=== PATIENT | male | born 1965 | race Caucasian/White ===

== ENCOUNTER 2017-09-14 06:35 | Emergency (ER) | payer OTHER ==
[~2017-09-14] VITALS: Ht 182.9 cm; Wt 112.4 kg
[~2017-09-14 06:35] MED LIST: ASPIR 8181 M1 PO; ATENOLOL50 MG PO; LISINOPRIL20 MG PO; MOTRIN800 MG PO; PRAVACHOL10 MG PO; ULTRAM50 MG PO
[2017-09-14] MEDS ORDERED: PERCOCET 5/31 TABLET PO (07:59)
[2017-09-14 08:15] VITALS: BP 162/100
== END 2017-09-14 08:15 | disposition home or self-care (01) ==
LOC: EME 06:35
DX: S93.402A Sprain of unspecified ligament of left ankle, initial encounter (principal); W18.30XA Fall on same level, unspecified, initial encounter; Y93.H9 Activity, other involving exterior property and land maintenance, building and construction; Y92.007 Garden or yard of unspecified non-institutional (private) residence as the place of occurrence of the external cause; I10 Essential (primary) hypertension; E78.5 Hyperlipidemia, unspecified; K21.9 Gastro-esophageal reflux disease without esophagitis; Z79.82 Long term (current) use of aspirin
CPT/HCPCS: 73610; 99281; 99284